=== PATIENT | female | born 2000 ===

== ENCOUNTER 2021-03-03 14:52 | Outpatient (REF) | payer SELFPAY ==
[2021-03-05 15:48] LABS: GC Result Negative (Negative)
[2021-03-05 16:04] LABS: Chlamydia Result Positive (Negative)
== END 2021-03-03 14:53 | disposition home or self-care (01) ==
LOC: NCHCN 14:52
PROVIDERS: Visit Provider Nurse Practitioner Family
DX: Z11.3 Encounter for screening for infections with a predominantly sexual mode of transmission (principal); J45.20 Mild intermittent asthma, uncomplicated; F43.10 Post-traumatic stress disorder, unspecified
CPT/HCPCS: 87491; 87591